=== PATIENT | male | born 1975 | race African-American/Black ===

== ENCOUNTER 2023-04-03 20:16 | Inpatient (IN) | payer MEDICARE, OTHER ==
[~2023-04-03] VITALS: Ht 172.7 cm; Wt 104.3 kg
[~2023-04-03 20:16] MED LIST: CARVEDILOL12.5 MG PO; ELIQUIS5 MG PO; HYDRALAZINE HC100 MG PO; ISOSORBIDE MONO30 MG PO; PANTOPRAZOLE SO40 MG PO; PRAMIPEXOLE0.125 MG PO; RENVELA800 MG PO
[2023-04-03] MEDS ORDERED: HYDRALAZINE HCL 20 MG/ML VIAL IV STA ×2 (20:34→21:33)
[2023-04-03] MEDS ORDERED: SODIUM CHLORIDE FLUSH 10 ML SYR IV PRN (20:45)
[2023-04-03 21:28] LABS: BASOPHILS % 0.2 % (0.0-1.0); EOSINOPHILS # (AUTO) 0.1 (0.0-0.4); EOSINOPHILS % 1.7 % (0.0-6.0); HEMATOCRIT 31.6 % (38.2-49.6); HEMOGLOBIN 10.3 g/dL (14.0-18.0); LYMPHOCYTES # (AUTO) 0.8 (1.0-3.2); LYMPHOCYTES % 13.3 % (18.0-39.1); MEAN CORPUSCULAR HEMOGLOBIN 31.7 pg (28-32); MEAN CORPUSCULAR HGB CONC 32.6 g/dL (31-35); MEAN CORPUSCULAR VOLUME 97.2 fL (81-99); MONOCYTES # (AUTO) 0.7 (0.2-0.8); MONOCYTES % 11.4 % (4.4-11.3); NEUTROPHILS # (AUTO) 4.3 (2.1-6.9); NEUTROPHILS % 73.2 % (38.7-80.0); PLATELET COUNT 214 x10e3/uL (140-360); RED BLOOD COUNT 3.25 x10e6/uL (4.3-5.7); RED CELL DISTRIBUTION WIDTH 16.8 % (11.7-14.4); WHITE BLOOD COUNT 5.88 x10e3/uL (4.8-10.8)
[2023-04-03 21:40] LABS: ALBUMIN 3.4 g/dL (3.5-5.0); ALBUMIN/GLOBULIN RATIO 0.9 (0.8-2.0); ANION GAP 24.8 mmol/L (8-16); CALCIUM 8.1 mg/dL (8.4-10.2); CREATININE, SERUM 15.26 mg/dL (0.72-1.25); POTASSIUM 4.8 mmol/L (3.5-5.1)
[2023-04-03] MEDS ORDERED: NITROGLYCERIN 2% OINT 1 GM PKT TOP ONE (21:45)
[2023-04-03] MEDS: NITROGLYCERIN/D5W 200 MCG/ML 250 ML IV SCH (22:33)
[2023-04-03] MEDS ORDERED: FENTANYL CITRATE/PF 100MCG/2 ML INJ IV ONE (22:45)
[2023-04-03] MEDS ORDERED: ASPIRIN 81 MG CHEW TAB PO ONE ×2 (23:15)
[2023-04-03] MEDS ORDERED: ONDANSETRON HCL INJ 2MG/ML 2ML 2 MG/ML VIAL IV PRN (23:15)
[2023-04-03] MEDS ORDERED: SODIUM CHLORIDE FLUSH 10 ML SYR INJ PRN (23:15)
[2023-04-03] MEDS ORDERED: FENTANYL CITRATE/PF 100MCG/2 ML INJ IV PRN (23:15)
[2023-04-04] VITALS (45 sets, daily range): BP systolic 149–228; BP diastolic 71–139; PULSE 78–98; RESP 16–30; TEMP 98.1–98.6; O2SAT 95–100
[2023-04-04] MEDS ORDERED: ACETAMINOPHEN 325 MG TAB PO PRN (01:00)
[2023-04-04] MEDS ORDERED: TRAMADOL/APAP 37.5MG-325MG TAB PO PRN (01:00)
[2023-04-04] MEDS ORDERED: DOCUSATE SODIUM 100 MG CAP PO PRN (01:00)
[2023-04-04] MEDS ORDERED: GUAIFENESIN/DEXTROMETHORPHAN LIQD 5 ML UDC PO PRN (01:00)
[2023-04-04] MEDS ORDERED: ALBUTEROL SULF 0.083% NEB SOLN 3 ML NEB NEB PRN (01:00)
[2023-04-04] MEDS ORDERED: MELATONIN 3 MG TAB PO PRN (01:00)
[2023-04-04] MEDS ORDERED: ACETAMINOPHEN 325 MG TAB PO ONE (02:00)
[2023-04-04] MEDS ORDERED: FENTANYL CITRATE/PF 100MCG/2 ML INJ IV ONE ×2 (04:30→08:15)
[2023-04-04 06:47] LABS: BASOPHILS % 0.2 % (0.0-1.0); EOSINOPHILS # (AUTO) 0.1 (0.0-0.4); EOSINOPHILS % 1.2 % (0.0-6.0); HEMATOCRIT 29.5 % (38.2-49.6); HEMOGLOBIN 9.6 g/dL (14.0-18.0); LYMPHOCYTES # (AUTO) 0.6 (1.0-3.2); LYMPHOCYTES % 12.6 % (18.0-39.1); MEAN CORPUSCULAR HEMOGLOBIN 31.6 pg (28-32); MEAN CORPUSCULAR HGB CONC 32.5 g/dL (31-35); MONOCYTES # (AUTO) 0.6 (0.2-0.8); MONOCYTES % 12.2 % (4.4-11.3); NEUTROPHILS # (AUTO) 3.7 (2.1-6.9); NEUTROPHILS % 73.6 % (38.7-80.0); PLATELET COUNT 173 x10e3/uL (140-360); RED BLOOD COUNT 3.04 x10e6/uL (4.3-5.7); RED CELL DISTRIBUTION WIDTH 16.7 % (11.7-14.4); WHITE BLOOD COUNT 5.01 x10e3/uL (4.8-10.8)
[2023-04-04 07:10] LABS: ALBUMIN 3.3 g/dL (3.5-5.0); CREATININE, SERUM 15.58 mg/dL (0.72-1.25)
[2023-04-04] MEDS ORDERED: SODIUM CHLORIDE 0.9% 1000ML 2,000 ML ONE (08:39)
[2023-04-04] MEDS ORDERED: HYDRALAZINE HCL 100 MG TABLET PO SCH (09:00)
[2023-04-04] MEDS: SEVELAMER CARBONATE 800 MG TAB PO SCH ×3 (09:43→16:56)
[2023-04-04] MEDS: ISOSORBIDE MONONITRATE 30 MG TAB CR PO SCH (09:43)
[2023-04-04] MEDS: APIXABAN 5 MG TABLET PO SCH ×2 (09:44→16:56)
[2023-04-04] MEDS: CARVEDILOL 12.5 MG TAB PO SCH ×2 (09:44→16:57)
[2023-04-04] MEDS: PANTOPRAZOLE SOD 40 MG TABEC PO SCH (09:44)
[2023-04-04 10:35] LABS: MAGNESIUM 2.5 MG/DL (1.3-2.1); PHOSPHORUS 8.3 MG/DL (2.3-4.7)
[2023-04-04] MEDS: HYDRALAZINE HCL 20 MG/ML VIAL IV PRN ×2 (10:57→16:51)
[2023-04-04] MEDS ORDERED: NALOXONE HCL INJ 0.4 MG/ML AMP IV PRN (13:00)
[2023-04-04] MEDS: HYDRALAZINE HCL 25 MG TAB PO SCH ×3 (13:25→23:52)
[2023-04-04] MEDS ORDERED: ACETAMIN/BUTALBITAL/CAFFEINE TAB PO ONE (13:30)
[2023-04-04] MEDS: Morphine 4mg INJECTION 4 MG/ML INJ IV PRN ×3 (14:16→21:02)
[2023-04-04] MEDS ORDERED: ACETAMIN/BUTALBITAL/CAFFEINE TAB PO PRN (17:00)
[2023-04-04] MEDS: MINOXIDIL 2.5 MG TAB PO SCH (17:07)
[2023-04-04] MEDS: NIFEDIPINE CR 30 MG TAB PO SCH (20:30)
[2023-04-04] MEDS: NITROGLYCERIN/D5W 200 MCG/ML 250 ML IV SCH (22:30)
[2023-04-05] VITALS (15 sets, daily range): BP systolic 109–161; BP diastolic 60–100; PULSE 71–98; RESP 14–22; TEMP 97.8–98.8; O2SAT 91–100
[2023-04-05] MEDS: Morphine 4mg INJECTION 4 MG/ML INJ IV PRN ×4 (00:05→20:31)
[2023-04-05] MEDS: HYDRALAZINE HCL 25 MG TAB PO SCH ×3 (05:07→17:07)
[2023-04-05] MEDS: MINOXIDIL 2.5 MG TAB PO SCH ×2 (08:19→17:00)
[2023-04-05] MEDS: PANTOPRAZOLE SOD 40 MG TABEC PO SCH (08:19)
[2023-04-05] MEDS: CARVEDILOL 12.5 MG TAB PO SCH ×2 (08:20→17:08)
[2023-04-05] MEDS: SEVELAMER CARBONATE 800 MG TAB PO SCH ×3 (08:20→17:07)
[2023-04-05] MEDS: APIXABAN 5 MG TABLET PO SCH ×2 (08:20→17:07)
[2023-04-05] MEDS: ISOSORBIDE MONONITRATE 30 MG TAB CR PO SCH (08:20)
[2023-04-05] MEDS ORDERED: ONDANSETRON HCL 4 MG ORAL DISINTEGRATING TAB PO PRN (16:30)
[2023-04-05] MEDS: NIFEDIPINE CR 30 MG TAB PO SCH (20:30)
[2023-04-05] MEDS: NITROGLYCERIN/D5W 200 MCG/ML 250 ML IV SCH (22:30)
[2023-04-06 00:38] VITALS: BP 135/78; PULSE 72; RESP 19; TEMP 97.4; O2SAT 100
[2023-04-06] MEDS: HYDRALAZINE HCL 25 MG TAB PO SCH ×3 (01:14→12:00)
[2023-04-06] MEDS: Morphine 4mg INJECTION 4 MG/ML INJ IV PRN ×3 (01:19→11:51)
[2023-04-06 04:55] VITALS: BP 136/79; PULSE 67; RESP 18; TEMP 97.7; O2SAT 100
[2023-04-06 07:00] VITALS: PULSE 98; RESP 16; O2SAT 95
[2023-04-06 07:00] LABS: ALBUMIN 3.5 g/dL (3.5-5.0); ALBUMIN/GLOBULIN RATIO 0.8 (0.8-2.0); ANION GAP 22.3 mmol/L (8-16); CALCIUM 8.2 mg/dL (8.4-10.2); CREATININE, SERUM 13.52 mg/dL (0.72-1.25); POTASSIUM 5.3 mmol/L (3.5-5.1)
[2023-04-06] MEDS ORDERED: SODIUM CHLORIDE 0.9% 1000ML 2,000 ML ONE (07:35)
[2023-04-06 07:53] VITALS: BP 119/75; PULSE 68; RESP 17; TEMP 97.9; O2SAT 94
[2023-04-06] MEDS: MINOXIDIL 2.5 MG TAB PO SCH (09:00)
[2023-04-06 11:43] VITALS: BP 100/61; PULSE 70; RESP 20; TEMP 97.6; O2SAT 97
[2023-04-06] MEDS: ISOSORBIDE MONONITRATE 30 MG TAB CR PO SCH (13:35)
[2023-04-06] MEDS: SEVELAMER CARBONATE 800 MG TAB PO SCH ×2 (13:36→13:39)
[2023-04-06] MEDS: PANTOPRAZOLE SOD 40 MG TABEC PO SCH (13:36)
[2023-04-06] MEDS: APIXABAN 5 MG TABLET PO SCH (13:36)
[2023-04-06] MEDS: CARVEDILOL 12.5 MG TAB PO SCH (13:37)
[2023-04-06] MEDS ORDERED: MINOXIDIL2.5 MG PO ×2 (15:35→16:03)
[2023-04-06] MEDS ORDERED: ACETAMINOPHEN-1 EAC4 PO ×3 (15:35→16:48)
[2023-04-06] MEDS ORDERED: ONDANSETRON ODT4 MG PO ×2 (15:35→16:03)
[2023-04-06] MEDS ORDERED: FIORICET 50-301 EACH PO ×2 (15:35→16:03)
[2023-04-06] MEDS ORDERED: HYDRALAZINE HCL25 MG PO ×2 (15:35→16:03)
[2023-04-06] MEDS ORDERED: MELATONIN3 MG PO ×2 (15:35→16:03)
[2023-04-06] MEDS ORDERED: GUAIFENESIN-DM 15 ML PO ×2 (15:35→16:03)
[2023-04-06 15:38] VITALS: BP 129/72; PULSE 84; RESP 19; TEMP 98.5; O2SAT 98
[2023-04-06] MEDS ORDERED: NIFEDIPINE ER30 M1 PO ×2 (15:43→16:03)
== END 2023-04-06 17:08 | disposition home or self-care (01) | DRG 280 ==
LOC: ER 20:26 → ERHOLD 23:15 → ICU 04-04 07:41 → MED/SURG2 04-05 10:26
PROVIDERS: ADMIT Internal Medicine; ATTEND Internal Medicine
PROC: 5A1D70Z Performance of Urinary Filtration, Intermittent, Less than 6 Hours Per Day (ICD-10-PCS; principal; 2023-04-04)
DX: I13.2 Hypertensive heart and chronic kidney disease with heart failure and with stage 5 chronic kidney disease, or end stage renal disease (principal); I50.23 Acute on chronic systolic (congestive) heart failure; I21.A1 Myocardial infarction type 2; J96.21 Acute and chronic respiratory failure with hypoxia; N18.6 End stage renal disease; J81.0 Acute pulmonary edema; I16.1 Hypertensive emergency; J90 Pleural effusion, not elsewhere classified; E87.0 Hyperosmolality and hypernatremia; I16.9 Hypertensive crisis, unspecified; I42.8 Other cardiomyopathies; N47.2 Paraphimosis; E87.70 Fluid overload, unspecified; F41.9 Anxiety disorder, unspecified; G47.33 Obstructive sleep apnea (adult) (pediatric); E73.9 Lactose intolerance, unspecified; E66.9 Obesity, unspecified; F10.21 Alcohol dependence, in remission; F17.200 Nicotine dependence, unspecified, uncomplicated; F32.A Depression, unspecified; F12.90 Cannabis use, unspecified, uncomplicated; Z99.2 Dependence on renal dialysis; Z99.81 Dependence on supplemental oxygen; Z86.19 Personal history of other infectious and parasitic diseases; Z86.718 Personal history of other venous thrombosis and embolism; Z79.01 Long term (current) use of anticoagulants; Z95.810 Presence of automatic (implantable) cardiac defibrillator; Z82.49 Family history of ischemic heart disease and other diseases of the circulatory system; Z20.822 Contact with and (suspected) exposure to COVID-19; Z68.35 Body mass index [BMI] 35.0-35.9, adult
CPT/HCPCS: 36415; 71045; 80053; 82550; 83735; 83880; 84100; 84484; 85025; 86705; 86706; 87340; 87350; 93005; 94760; 94799; 99252; 99285; J2270; J7030; U0002